=== PATIENT | male | born 1945 | race Caucasian/White ===

== ENCOUNTER 2016-06-12 10:34 | Emergency (ER) | payer OTHER ==
[2016-06-12 11:15] LABS: BASOPHIL 0.4 % (0-2); EOSINOPHIL 3.2 % (0-7); HCT 45.8 % (42.0-52.0); HGB 15.2 g/dl (13.2-18.0); LYMPHOCYTE 15.6 % (15-48); MCH 28.3 pg (25.0-31.0); MCHC 33.2 g/dL (32.0-36.0); MCV 85.1 fL (78.0-100.0); MONOCYTE 11.7 % (0-12); NEUTROPHIL 69.1 % (41-80); PLT 227 K/uL (150-400); RBC 5.38 M/uL (4.70-6.00); RDW 14.1 % (11.5-14.0); WBC 11.3 K/uL (4.0-10.5)
[2016-06-12 11:31] LABS: TROPONIN T 0.025 ng/mL
[2016-06-12 11:34] LABS: CREATININE 0.9 mg/dL (0.7-1.2)
== END 2016-06-12 14:31 | disposition home or self-care (01) ==
LOC: FER 10:34
PROVIDERS: Emergency Medicine
DX: J44.1 Chronic obstructive pulmonary disease with (acute) exacerbation (principal); I45.10 Unspecified right bundle-branch block; I25.810 Atherosclerosis of coronary artery bypass graft(s) without angina pectoris; I11.9 Hypertensive heart disease without heart failure; I25.2 Old myocardial infarction; E11.9 Type 2 diabetes mellitus without complications; Z87.891 Personal history of nicotine dependence; Z95.1 Presence of aortocoronary bypass graft; Z99.81 Dependence on supplemental oxygen
CPT/HCPCS: 36415; 36600; 71010; 80048; 82803; 83880; 84484; 85025; 93005; 94640; J2930

== ENCOUNTER 2016-10-02 15:22 | Inpatient (IN) | payer OTHER ==
[~2016-10-02] VITALS: Ht 175.3 cm; Wt 100.0 kg
[2016-10-02 16:07] LABS: BASOPHIL 0.4 % (0-2); EOSINOPHIL 2.9 % (0-7); HCT 45.9 % (42.0-52.0); HGB 15.4 g/dl (13.2-18.0); LYMPHOCYTE 15.2 % (15-48); MCH 28.6 pg (25.0-31.0); MCHC 33.6 g/dL (32.0-36.0); MCV 85.3 fL (78.0-100.0); MONOCYTE 11.9 % (0-12); MPV 10.1 fL (6.0-9.5); NEUTROPHIL 69.6 % (41-80); PLT 210 K/uL (150-400); RBC 5.38 M/uL (4.70-6.00); RDW 15.1 % (11.5-14.0); WBC 12.9 K/uL (4.0-10.5)
[2016-10-02 16:10] LABS: INR 0.99 (0.9-1.2); PROTHROMBIN TIME 12.7 SECONDS (11.7-14.0)
[2016-10-02 16:17] LABS: TROPONIN T 0.019 ng/mL
[2016-10-02 16:19] LABS: ALBUMIN 3.9 g/dL (3.4-4.8); BILIRUBIN - TOTAL 0.4 mg/dL (0.1-1.0); CKMB 6.8 ng/mL (0.97-4.94); GLOBULIN (CALCULATION) 2.4 g/dL (2.2-4.2); POTASSIUM 4.6 mmol/L (3.5-5.1); TOTAL PROTEIN 6.3 g/dL (6.4-8.3)
[2016-10-02 16:23] LABS: BILIRUBIN NEGATIVE (NEGATIVE); BLOOD NEGATIVE Ery/uL (NEGATIVE); CLARITY CLEAR (CLEAR); COLOR YELLOW (YELLOW); GLUCOSE (U) 3+ mg/dL (NORMAL); KETONE (U) NEGATIVE (NEGATIVE); LEUKOCYTES NEGATIVE Leu/uL (NEGATIVE); NITRITE NEGATIVE (NEGATIVE); PROTEIN NEGATIVE (NEGATIVE); UROBILINOGEN 0.2 mg/dL (0.2-1.0)
[2016-10-02 21:40] LABS: TROPONIN T 0.017 ng/mL
[2016-10-02 21:47] LABS: CKMB 5.98 ng/mL (0.97-4.94)
[2016-10-03 05:15] LABS: BASOPHIL 0.4 % (0-2); EOSINOPHIL 1.6 % (0-7); HCT 45.3 % (42.0-52.0); HGB 15.5 g/dl (13.2-18.0); LYMPHOCYTE 19.1 % (15-48); MCH 28.8 pg (25.0-31.0); MCHC 34.2 g/dL (32.0-36.0); MCV 84.2 fL (78.0-100.0); MONOCYTE 11.4 % (0-12); MPV 10.3 fL (6.0-9.5); NEUTROPHIL 67.5 % (41-80); PLT 220 K/uL (150-400); RBC 5.38 M/uL (4.70-6.00); RDW 15.1 % (11.5-14.0); WBC 11.1 K/uL (4.0-10.5)
[2016-10-03 05:41] LABS: MAGNESIUM 1.79 mg/dL (1.40-2.10); POTASSIUM 3.9 mmol/L (3.5-5.1)
[2016-10-04 04:24] LABS: CREATININE 1.5 mg/dL (0.7-1.2); POTASSIUM 4.3 mmol/L (3.5-5.1)
[2016-10-05 04:05] LABS: HCT 44.2 % (42.0-52.0); HGB 14.8 g/dl (13.2-18.0); MCH 29.2 pg (25.0-31.0); MCHC 33.5 g/dL (32.0-36.0); MCV 87.2 fL (78.0-100.0); PLT 204 K/uL (150-400); RBC 5.07 M/uL (4.70-6.00); WBC 13.1 K/uL (4.0-10.5)
[2016-10-05 04:11] LABS: CREATININE 1.7 mg/dL (0.7-1.2); MAGNESIUM 2.08 mg/dL (1.40-2.10)
[2016-10-06 05:34] LABS: BASOPHIL 0.3 % (0-2); EOSINOPHIL 5.4 % (0-7); HCT 45.1 % (42.0-52.0); HGB 15.1 g/dl (13.2-18.0); LYMPHOCYTE 15.5 % (15-48); MCH 28.8 pg (25.0-31.0); MCHC 33.5 g/dL (32.0-36.0); MCV 85.9 fL (78.0-100.0); MONOCYTE 12.8 % (0-12); PLT 190 K/uL (150-400); RBC 5.25 M/uL (4.70-6.00); WBC 11.5 K/uL (4.0-10.5)
[2016-10-06 05:59] LABS: CREATININE 1.1 mg/dL (0.7-1.2); POTASSIUM 4.6 mmol/L (3.5-5.1)
[2016-10-06] MEDS ORDERED: AMARYL2 MG PO (13:29)
[2016-10-06] MEDS ORDERED: ASPIRIN CHEWABL81 MG PO (13:29)
[2016-10-06] MEDS ORDERED: LASIX40 MG PO (13:30)
[2016-10-06] MEDS ORDERED: PLAVIX75 MG PO (13:30)
[2016-10-06] MEDS ORDERED: ALDACTONE25 MG PO (13:31)
[2016-10-06] MEDS ORDERED: NITROSTAT0.4 MG SL (13:31)
[2016-10-06] MEDS ORDERED: PRAVACHOL80 MG PO (13:32)
[2016-10-06] MEDS ORDERED: ZESTRIL5 MG PO (13:32)
[2016-10-06] MEDS ORDERED: IMDUR 30MG TABL30 MG PO (13:33)
[2016-10-06] MEDS ORDERED: NOVOLOG MI100 UNIT/3 SC (13:34)
[2016-10-06] MEDS ORDERED: MICRO-K10 MEQ PO (13:34)
== END 2016-10-06 13:57 | disposition home health service (06) | DRG 291 ==
LOC: FER 15:22 → FTCU 16:35
PROVIDERS: Emergency Medicine; Internal Medicine Cardiovascular Disease; ADMIT Internal Medicine
DX: I11.0 Hypertensive heart disease with heart failure (principal); J96.21 Acute and chronic respiratory failure with hypoxia; N17.9 Acute kidney failure, unspecified; J44.1 Chronic obstructive pulmonary disease with (acute) exacerbation; I50.33 Acute on chronic diastolic (congestive) heart failure; E11.9 Type 2 diabetes mellitus without complications; I25.10 Atherosclerotic heart disease of native coronary artery without angina pectoris; I27.2 Other secondary pulmonary hypertension; Z79.82 Long term (current) use of aspirin; Z79.01 Long term (current) use of anticoagulants; Z79.4 Long term (current) use of insulin; Z95.1 Presence of aortocoronary bypass graft; Z95.810 Presence of automatic (implantable) cardiac defibrillator
CPT/HCPCS: 36415; 36600; 71010; 71020; 80048; 80053; 81003; 82550; 82553; 82803; 82947; 82962; 83036; 83735; 83880; 84484; 85025; 85610; 85730; 93005; 94640; 94760; 94762; J1940